=== PATIENT | female | born 1995 | race Hispanic/Latino ===

== ENCOUNTER 2022-01-05 23:14 | Emergency (ER) | payer MEDICAID ==
[~2022-01-05] VITALS: Ht 144.8 cm; Wt 85.3 kg
[2022-01-05 23:16] VITALS: BP 127/81
[2022-01-05] MEDS ORDERED: IBUPROFEN 400 MG TABLET ONE (23:40)
[2022-01-05] MEDS ORDERED: IBUPROFEN 200 MG TAB ONE (23:40)
[2022-01-06] MEDS ORDERED: FLUT16H NASAL
[2022-01-06] MEDS ORDERED: AMOX-426 PO
[2022-01-06] MEDS ORDERED: LORA10TA7 PO
== END 2022-01-06 00:14 | disposition home or self-care (01) ==
LOC: EDH 23:14
DX: J32.9 Chronic sinusitis, unspecified (principal); B96.89 Other specified bacterial agents as the cause of diseases classified elsewhere; Z20.822 Contact with and (suspected) exposure to COVID-19; Z98.890 Other specified postprocedural states
CPT/HCPCS: 87635; 87804 ×2; 87880; 99283; C9803